=== PATIENT | female | born 1960 | race Caucasian/White ===

== ENCOUNTER 2016-12-09 09:49 | Emergency (ER) | payer BC ==
--- NOTE | ~2016-12-09 | ER ---
[facility] AGE[facility] 56 Y [address] ROOM: [place] [id number] LOCATION: [facility] ADMIT DATE: 12/09/2016 ER/Outpatient Report DISCHARGE DATE: 12/09/2016 FAMILY PHYSICIAN: Stephon Elizalde MD ATTENDING PHYSICIAN: Palmer Purvis Admission date and time documented on the medical record. I saw the patient at 1000 hours. CHIEF COMPLAINT: Vertigo. HISTORY OF PRESENT ILLNESS: This patient is a 56-year-old female who presented to the emergency room with lightheadedness and dizziness that sounded like vertigo. When she changed position, she would spin, had a spinning sensation. No headache. No eyes, ears, nose, throat, neck, or spine pain. No tinnitus. No chest pain or shortness of breath. No abdominal pain. Some nausea, but no vomiting, diarrhea, or urinary frequency, urgency, or dysuria. No joint or muscle swelling, redness, or pain. No skin eruptions or rash. No history of neurologic changes, psychiatric issues, or endocrine problems. HOME MEDICATIONS: See attached medication list. ALLERGIES: LATEX. SOCIAL HISTORY: Nonsmoker, nondrinker. SIGNIFICANT PAST MEDICAL HISTORY: Rheumatoid arthritis. Otherwise, negative. OPERATIONS: x2, appendectomy, and right ankle surgery. REVIEW OF SYSTEMS: All systems reviewed by me are negative with the exception of those discussed in the History of Present Illness. PHYSICAL EXAMINATION: VITAL SIGNS: Temperature 97.1, pulse 67, respirations 18, blood pressure 166/81, and O2 saturation on room air is 98%. HEENT: Head: Normocephalic. No abrasion, contusion, laceration, or swelling PATIENT'S NAME: [facility] AGE: 56 Y [address] ROOM: [place] [id number] LOCATION: [facility] ADMIT DATE: 12/09/2016 ER/Outpatient Report DISCHARGE DATE: 12/09/2016 FAMILY PHYSICIAN: Stephon Elizalde MD ATTENDING PHYSICIAN: Palmer Purvis of the scalp or face. Eyes: Extraocular muscles intact. PERRL. Minimal horizontal nystagmus. Ears: Clear TMs bilaterally. Nose and Throat: Clear. Mucous membranes moist. Teeth and jaw intact. NECK: No nuchal rigidity. No thyromegaly or cervical adenopathy. No carotid bruits. LUNGS: Clear. Good air flow. No rales, rhonchi, or wheezes. HEART: Regular. Pulses are palpable. ABDOMEN: Soft and nontender. Good bowel tones. No organomegaly or abnormal masses palpable. EXTREMITIES: Without peripheral edema, cyanosis, or deformity. NEUROVASCULAR: Intact. SKIN: The patient has erythematous lesions on her right lateral chest and flank. They are isolated and slightly raised. DIAGNOSTIC DATA: CT scan of the head showed no intracranial bleed, midline shift, mass effect, or skull fracture. EKG showed sinus rhythm. No acute ST elevation, ischemic changes, or arrhythmia. LABORATORY DATA: CMS was normal. Troponin was less than 0.04. Thyroid studies were normal. D- dimer was 0.24. White count was 5300 with 68 segs, 23 lymphs, 7 monos, and 1 eos; hemoglobin was 13.1 with hematocrit 41.3; and platelet count was 158,000. IMPRESSION: Benign positional vertigo with nausea. PLAN: The patient was given IV normal saline fluids, Valium 4 mg IV in the emergency room, and Antivert 25 mg orally in the emergency room. Discharged home. Fluids and diet as tolerated. Continue present home medications and care. Valium 2 mg 3 times a day for a week. Antivert 25 mg 4 times a day for a week. Follow up with personal physician in 7 to 10 days or sooner if needed. Discussion ensued with the patient concerning my findings and recommendations, she understands. PALMER PURVIS MD SDS/modl /[id number] d: 12/09/16 1624 t: 12/10/16 0612, OUTPATIENT REPORT
[2016-12-09 10:32] LABS: BASOPHIL % 0.4 %; EOSINOPHIL # 0.1 K/uL (0.0-0.5); EOSINOPHIL % 1.1 %; HEMATOCRIT 41.3 % (33.0-46.0); HEMOGLOBIN 13.1 g/dL (10.0-15.0); IMMATURE GRANULOCYTE % 0.4 %; LYMPHOCYTE # 1.2 K/uL (0.8-4.0); LYMPHOCYTE % 23.1 %; MCH 27.1 pg (27.0-34.0); MCHC 31.7 gm/dL (32.0-36.5); MCV 85.3 fl (83.0-98.0); MONOCYTE # 0.4 K/uL (0.0-1.0); MONOCYTE % 7.2 %; MPV 12.5 fl (9.4-12.4); NEUTROPHIL # (ANC) 3.6 K/uL (1.8-7.8); NEUTROPHIL % 67.8 %; NRBC % 0 /100WBC (0-0.00); PLATELET COUNT 158 K/uL (150-450); RBC 4.84 M/uL (3.50-5.50); RDW-CV 13.7 % (11.9-14.6); WBC 5.3 K/uL (4.0-11.0)
[2016-12-09 10:52] LABS: ALBUMIN 3.8 gm/dL (3.5-5.0); ALK PHOS 34 IU/L (33-138); ALT 30 IU/L (12-78); AST 15 IU/L (10-40); BLOOD UREA NITROGEN 10 mg/dL (6-24); CALCIUM 8.5 mg/dL (8.5-10.5); CHLORIDE 110 mMol/L (96-110); CO2 25 mMol/L (22-32); CREATININE 0.9 mg/dL (0.5-1.1); ESTIMATED GFR (MDRD EQUATION) > 60; SODIUM 144 mMol/L (135-145); TOTAL BILIRUBIN 0.2 mg/dL (0.0-1.5); TOTAL PROTEIN 7.4 g/dL (6.0-8.4)
== END 2016-12-09 12:22 | disposition disaster alternative care site (69) ==
LOC: GMED 09:49
PROVIDERS: Emergency Medicine
DX: H81.10 Benign paroxysmal vertigo, unspecified ear (principal); M06.9 Rheumatoid arthritis, unspecified; Z91.040 Latex allergy status; Z90.49 Acquired absence of other specified parts of digestive tract; Z98.890 Other specified postprocedural states
CPT/HCPCS: J3360